=== PATIENT | female | born 1965 | race Caucasian/White ===

== ENCOUNTER → 2017-03-19 | Outpatient (CLI) | payer OTHER ==
[2017-03-19 14:41] LABS: CHLAM PCR NOT DETECTED (NOT DETECT)
== END ==
LOC: LAB 13:00
PROVIDERS: ATTEND Nurse Practitioner Acute Care
DX: N89.8 Other specified noninflammatory disorders of vagina (principal); R30.0 Dysuria
CPT/HCPCS: 87086; 87210; 87491; 87591

== ENCOUNTER → 2017-08-19 | Outpatient (CLI) | payer OTHER ==
--- NOTE | 2017-08-19 09:57 | WOMENS IMAGING REPORT ---
EXAM DESCRIPTION: BILAT SCREENING MAMMO W/CAD COMPLETED DATE/TIME: 08/19/2017 8:16 am REASON FOR STUDY: ROUTINE SCREENING; Z12.31 Z12.31 ENCNTR SCREEN MAMMOGRAM FOR MALIGNANT NEOPLASM O F SOY COMPARISON: 08/18/2016 and 07/23/2015. TECHNIQUE: Standard craniocaudal and mediolateral oblique views of each breast recorded using digita l acquisition. LIMITATIONS: None. FINDINGS: No masses, calcifications or architectural distortion. No areas of suspicion. Read with the assistance of CAD. .[facility] - R2 Cenova Version 1.3 .[facility] Imaging - R2 Cenova Version 1.3 .[facility] Imaging - R2 Cenova Version 2.4 .[facility] [place] - R2 Cenova Version 2.4 .[facility] - R2 Oracle Apex Developer Version 9.2 IMPRESSION: NORMAL MAMMOGRAM. BIRADS 1. BREAST DENSITY: c. The breasts are heterogeneously dense, which may obscure small masses. BIRAD: 1 NEGATIVE RECOMMENDATION: ROUTINE SCREENING COMMENT: The patient has been notified of the results by letter per MQSA requirements. Additional no tification policies are in place for contacting patient with suspicious or incomplete findings. Quality ID #[id number]: The [employer] recommends an annual screening mammogram for women aged 40 years or over. This facility utilizes a reminder system to ensure that all patients receive reminder letters, and/or direct phone calls for appointments. This includes reminders for routine scr eening mammograms, diagnostic mammograms, or other Breast Imaging Interventions when appropriate. Th is patient will be placed in the appropriate reminder system. The [employer] (ACR) has developed recommendations for screening MRI of the breast s in certain patient populations, to be used in conjunction with mammography. Breast MRI surveillanc e may be appropriate for women with more than 20% lifetime risk of developing breast cancer as deter mined by genetic testing, significant family history of the disease, or history of mantle radiation f or Hodgkins Disease. ACR Practice Guidelines 2008. TECHNICAL DOCUMENTATION: FINDING NUMBER: (1) ASSESSMENT: (1) JOB ID: [id number] [employer]- All Rights Reserved
== END ==
LOC: WI 07:55
PROVIDERS: ATTEND Family Medicine
DX: Z12.31 Encounter for screening mammogram for malignant neoplasm of breast (principal)
CPT/HCPCS: 77067; G0202

== ENCOUNTER → 2018-08-11 | Outpatient (CLI) | payer OTHER ==
--- NOTE | 2018-08-11 15:51 | RADIOLOGY REPORT (SQ) ---
EXAM DESCRIPTION: LUMBAR SPINE COMPLETE COMPLETED DATE/TIME: 08/11/2018 2:08 pm REASON FOR STUDY: CHRONIC CORRINE LBP WITH BILAT SCIATICA M54.42 LUMBAGO WITH SCIATICA, LEFT SIDE COMPARISON: None. NUMBER OF VIEWS: Five views including obliques. TECHNIQUE: AP, lateral, oblique, and sacral radiographic images acquired of the lumbar spine. LIMITATIONS: None. FINDINGS: MINERALIZATION: Normal. SEGMENTATION: Normal. No transitional anatomy. ALIGNMENT: Normal. VERTEBRAE: Maintained height. No fracture or worrisome bone lesion. DISCS: Multilevel disc space narrowing with osteophytes. POSTERIOR ELEMENTS: Pedicles and facets are intact. No pars defect or posterior arch defects. Facet arthropathy is present. HARDWARE: None in the spine. PARASPINAL SOFT TISSUES: Normal. PELVIS: Intact as visualized. No fractures or worrisome bone lesions. SI joints intact. OTHER: No other significant finding. IMPRESSION: SPONDYLOSIS WITHOUT BONE LESION OR FRACTURE. TECHNICAL DOCUMENTATION: JOB ID: [id number] [employer]- All Rights Reserved Reading location - IP/workstation name: [email or web address]
== END ==
LOC: OD 13:49
PROVIDERS: ATTEND Family Medicine
DX: M54.42 Lumbago with sciatica, left side (principal)
CPT/HCPCS: 72110

== ENCOUNTER → 2018-08-23 | Outpatient (CLI) | payer OTHER ==
--- NOTE | 2018-08-23 09:09 | WOMENS IMAGING REPORT ---
EXAM DESCRIPTION: BILAT SCREENING MAMMO W/CAD COMPLETED DATE/TIME: 08/23/2018 8:15 am REASON FOR STUDY: SCREENING MAMMO Z12.31 ENCNTR SCREEN MAMMOGRAM FOR MALIGNANT NEOPLASM OF SOY COMPARISON: Multiple since 2008 TECHNIQUE: Standard craniocaudal and mediolateral oblique views of each breast recorded using digita l acquisition. LIMITATIONS: None. FINDINGS: No masses, calcifications or architectural distortion. No areas of suspicion. Read with the assistance of CAD. .[facility] - R2 Cenova Version 1.3 .[facility] Imaging - R2 Cenova Version 1.3 .[facility] Imaging - R2 Cenova Version 2.4 .[facility] [place] - R2 Cenova Version 2.4 .[facility] - R2 Parts Administrator Version 9.2 IMPRESSION: NORMAL MAMMOGRAM. BIRADS 1. BREAST DENSITY: b. There are scattered areas of fibroglandular density. BIRAD: 1 NEGATIVE RECOMMENDATION: ROUTINE SCREENING Please continue yearly bilateral screening mammography/tomosynthesis in August 2019 COMMENT: The patient has been notified of the results by letter per SA requirements. Additional no tification policies are in place for contacting patient with suspicious or incomplete findings. Quality ID #[id number]: The [employer] recommends an annual screening mammogram for women aged 40 years or over. This facility utilizes a reminder system to ensure that all patients receive reminder letters, and/or direct phone calls for appointments. This includes reminders for routine scr eening mammograms, diagnostic mammograms, or other Breast Imaging Interventions when appropriate. Th is patient will be placed in the appropriate reminder system. The [employer] (ACR) has developed recommendations for screening MRI of the breast s in certain patient populations, to be used in conjunction with mammography. Breast MRI surveillanc e may be appropriate for women with more than 20% lifetime risk of developing breast cancer as deter mined by genetic testing, significant family history of the disease, or history of mantle radiation f or Hodgkins Disease. ACR Practice Guidelines 2008. TECHNICAL DOCUMENTATION: FINDING NUMBER: (1) ASSESSMENT: (1) JOB ID: [id number] [employer]- All Rights Reserved Reading location - IP/workstation name: [email or web address]
== END ==
LOC: WI 07:57
PROVIDERS: ATTEND Family Medicine
DX: Z12.31 Encounter for screening mammogram for malignant neoplasm of breast (principal)
CPT/HCPCS: 77067

== ENCOUNTER → 2018-10-20 | Outpatient (CLI) | payer OTHER ==
[2018-10-20 11:19] LABS: EPITHELIALS (WET MOUNT) 3+ EPITHELIALS SEEN; RBCS (WET MOUNT) FEW RBCS SEEN; T.VAGINALIS (WET MOUNT) NO TRICHOMONAS SEEN; WBCS (WET MOUNT) FEW WBCS SEEN; YEAST (WET MOUNT) NO YEAST SEEN
== END ==
LOC: LAB 11:08
PROVIDERS: ATTEND Nurse Practitioner Acute Care
DX: N89.8 Other specified noninflammatory disorders of vagina (principal)
CPT/HCPCS: 87210

== ENCOUNTER → 2019-02-22 | Outpatient (CLI) | payer OTHER ==
--- NOTE | 2019-02-22 09:57 | WOMENS IMAGING REPORT ---
EXAM DESCRIPTION: RIGHT DIAGNOSTIC MAMMO W/CAD COMPLETED DATE/TIME: 02/22/2019 8:33 am REASON FOR STUDY: N63.0 UNSPECIFIED LUMP IN UNSPECIFIED BREAST N63.0 UNSPECIFIED LUMP IN UNSPECIFIE D BREAST COMPARISON: [id number] EXAM PARAMETERS: Standard craniocaudal and mediolateral oblique images of the breast recorded with d igital acquisition. True lateral view. Read with the assistance of CAD. .[facility] - R2 [employer] Worker Version 9.2 LIMITATIONS: None. FINDINGS: BREAST LATERALITY: right MASSES: No suspicious masses. CALCIFICATIONS: No new or suspicious calcifications. ARCHITECTURAL DISTORTION: None. DEVELOPING DENSITY: None. ASYMMETRY: None noted. OTHER: No other significant findings. IMPRESSION: No evidence of malignancy. BREAST DENSITY: b. There are scattered areas of fibroglandular density. BIRAD: ASSESSMENT: 1 Negative. RECOMMENDATION: RECOMMENDED FOLLOW UP: Birads 1 or 2: The patient should resume routine screening . SPECIFIC INTERVENTION/IMAGING/CONSULTATION RECOMMENDED:No additional intervention/ imaging/consultati on needed at this time. COMMUNICATION:The imaging findings were not discussed with the patient. Her referring provider has be en notified of the findings. COMMENT: The patient has been notified of the results by letter per MQSA requirements. Additional no tification policies are in place for contacting patient with suspicious or incomplete findings. Quality ID #225: The [employer] recommends an annual screening mammogram for women aged 40 years or over. This facility utilizes a reminder system to ensure that all patients receive reminder letters, and/or direct phone calls for appointments. This includes reminders for routine scr eening mammograms, diagnostic mammograms, or other Breast Imaging Interventions when appropriate. Th is patient will be placed in the appropriate reminder system. TECHNICAL DOCUMENTATION: FINDING NUMBER: (1) ASSESSMENT: (1) JOB ID: [id number] [employer]- All Rights Reserved Reading location - IP/workstation name: [email or web address]
== END ==
LOC: WI 07:54
PROVIDERS: ATTEND Family Medicine
DX: N63.10 Unspecified lump in the right breast, unspecified quadrant (principal)

== ENCOUNTER 2019-06-05 00:05 | Emergency (ER) | payer OTHER ==
[2019-06-05 01:56] LABS: ABSOLUTE EOSINOPHILS # (AUTO) 0.1 10^3/uL (0.0-0.6); ABSOLUTE LYMPHOCYTES (AUTO) 1.6 10^3/uL (0.5-4.7); ABSOLUTE MONOCYTES (AUTO) 0.6 10^3/uL (0.1-1.4); ABSOLUTE NEUT (AUTO) 6.8 10^3/uL (1.7-8.2); BASOPHILS % (AUTO) 0.3 % (0-2); EOSINOPHILS % (AUTO) 1.3 % (0-6); HEMATOCRIT 41.8 % (36.0-47.0); HEMOGLOBIN 14.6 g/dL (12.0-15.5); LYMPHOCYTES % (AUTO) 17.4 % (13-45); MEAN CORPUSCULAR HEMOGLOBIN 28.5 pg (27.0-33.4); MEAN CORPUSCULAR VOLUME 82 fl (80-97); PLATELET COUNT 232 10^3/uL (150-450); RED BLOOD COUNT 5.13 10^6/uL (3.72-5.28); RED CELL DISTRIBUTION WIDTH 13.4 % (11.5-14.0); TOTAL CELLS COUNTED % (AUTO) 100 %; WHITE BLOOD COUNT 9.2 10^3/uL (4.0-10.5)
--- NOTE | 2019-06-05 02:12 | ER Document Report ---
ED Extremity Problem, Lower - General Chief Complaint: Ankle Injury Stated Complaint: ANKLE PAIN/BLEEDING Time Seen by Provider: 06/05/19 01:30 Primary Care Provider: BRUCE YIN DO [Primary Care Provider] - Follow up as needed Notes: Patient is a 54-year-old female history of hypertension presents to the emergenc y department for a potential bleeding varicose vein in her left lower leg. Patient states she thought she had a scab on her left lower externally. States she went to scratch it and inadvertently the scab came off. States she noticed "spurting bright red blood." States her son had bleed stop in his Boy Electrical Equipment Assembler bag and they applied it. States bleeding had stopped pretty quickly after application of bleed stop, then patient presented to the emergency room. Patient's denying any injury or trauma to her left lower extremity. Patient denies any lightheadedness, dizziness, weakness, chest pain, shortness of breath. TRAVEL OUTSIDE OF THE [place] IN LAST 30 DAYS: No - Related Data Allergies/Adverse Reactions: No Known Allergies Allergy (Verified 12/01/14 16:22) Past Medical History - General Information source: Patient - Social History Smoking Status: Never Smoker Chew tobacco use (# tins/day): No Frequency of alcohol use: None Drug Abuse: None Family History: Reviewed & Not Pertinent Patient has suicidal ideation: No Patient has homicidal ideation: No - Past Medical History Cardiac Medical History: Reports: Hx Hypertension - on meds Denies: Hx Coronary Artery Disease, Hx Heart Attack Pulmonary Medical History: Reports: Hx Asthma - as child Denies: Hx Bronchitis, Hx COPD, Hx Pneumonia Neurological Medical History: Denies: Hx Cerebrovascular Accident, Hx Seizures Musculoskeletal Medical History: Denies Hx Arthritis Past Surgical History: Reports: Hx Hysterectomy - Immunizations Hx Diphtheria, Pertussis, Tetanus Vaccination: Yes Review of Systems - Review of Systems Constitutional: denies: Fever EENT: No symptoms reported Cardiovascular: No symptoms reported Respiratory: No symptoms reported Gastrointestinal: No symptoms reported Genitourinary: No symptoms reported Female Genitourinary: No symptoms reported Musculoskeletal: No symptoms reported Skin: See HPI Hematologic/Lymphatic: denies: Anemia, Blood clots, Easy bleeding, Easy bruising Neurological/Psychological: No symptoms reported Physical Exam - Vital signs Vitals: Temp Pulse Resp BP Pulse Ox 97.7 F 108 H 20 144/88 H 98 06/05/19 00:21 06/05/19 00:21 06/05/19 00:21 06/05/19 00:21 06/05/19 00:21 - Notes Notes: GENERAL: Alert, interacts well. No acute distress. HEAD: Normocephalic, atraumatic. EYES: Pupils equal, round, and reactive to light. Extraocular movements intact. ENT: Oral mucosa moist, tongue midline. NECK: Full range of motion. Supple. Trachea midline. LUNGS: Clear to auscultation bilaterally, no wheezes, rales, or rhonchi. No respiratory distress. HEART: Regular rate and rhythm. No murmur ABDOMEN: Soft, non-tender. Non-distended. Bowel sounds present in all 4 quadrants. EXTREMITIES: Moves all 4 extremities spontaneously. No edema, normal radial and dorsalis pedis pulses bilaterally. No cyanosis. Multiple varicose veins noted bilateral lower extremities. BACK: no cervical, thoracic, lumbar midline tenderness. No saddle anesthesia, normal distal neurovascular exam. NEUROLOGICAL: Alert and oriented x3. Normal speech. cranial nerves II through XII grossly intact PSYCH: Normal affect, normal mood. SKIN: Warm, dry, normal turgor. 'Bleed stop' noted left lower lateral extremity. Does appear to be white and hard in nature. Course - Re-evaluation Re-evalutation: 06/05/19 02:10 Patient does present to the emergency department after applying an soel-wcw-hbysifm bleed stop to potential bleeding varicose vein. Bleeding has discontinued upon arrival to the emergency room. Patient's CBC is within normal limits. Discussed this case my attending Dr. Ramirez, he states to leave white powder in place. States this typically acts as a scab and removing it can cause a recurrence of bleeding. Discussed with patient use of ikjm-lbu-gevotrn soap and water, cleaning the wound as it was a delicate scab. At this time will discharge with return precautions and follow-up recommendations. Verbal discharge instructions given a the bedside and opportunity for questions given. Medication warnings reviewed. Patient is in agreement with this plan and has verbalized understanding of return precautions and the need for primary care follow-up in the next 24-72 hours. This medical record was dictated with voice recognizing software. There may be grammatical, syntax errors that are unintended. - Vital Signs Vital signs: Temp Pulse Resp BP Pulse Ox 97.7 F 108 H 20 144/88 H 98 06/05/19 00:21 06/05/19 00:21 06/05/19 00:21 06/05/19 00:21 06/05/19 00:21 - Laboratory Result Diagrams: 06/05/19 01:35 Discharge - Discharge Clinical Impression: Wound of left lower extremity Qualifiers: Encounter type: initial encounter Qualified Code(s): S81.802A - Unspecified open wound, left lower leg, initial encounter Condition: Stable Disposition: HOME, SELF-CARE Additional Instructions: As we discussed you have been seen and treated in the emergency department for potential bleeding varicose vein. As we discussed you should clean the area with generalized soap and water, do not submerge it. Please follow-up with your primary care provider in the next 24 to 48 hours. Please return to the emergency room for any concerns. Your hemoglobin and hematocrit at today's visit were normal. Referrals: BRUCE YIN, [Primary Care Provider] - Follow up as needed
[2019-06-05 02:20] VITALS: BP 146/75
== END 2019-06-05 02:21 | disposition home or self-care (01) ==
LOC: ER 00:05
DX: S81.802A Unspecified open wound, left lower leg, initial encounter (principal); I83.92 Asymptomatic varicose veins of left lower extremity; X58.XXXA Exposure to other specified factors, initial encounter; I10 Essential (primary) hypertension; Z79.899 Other long term (current) drug therapy; J45.909 Unspecified asthma, uncomplicated
CPT/HCPCS: 36415; 85025; 99283

== ENCOUNTER 2019-11-13 12:12 | Observation (INO) | payer OTHER ==
[2019-11-13 13:05] LABS: ABSOLUTE LYMPHOCYTES (AUTO) 1.7 10^3/uL (0.5-4.7); ABSOLUTE MONOCYTES (AUTO) 0.4 10^3/uL (0.1-1.4); ABSOLUTE NEUT (AUTO) 3.5 10^3/uL (1.7-8.2); BASOPHILS % (AUTO) 0.6 % (0-2); EOSINOPHILS % (AUTO) 0.3 % (0-6); HEMATOCRIT 42.6 % (36.0-47.0); LYMPHOCYTES % (AUTO) 30.1 % (13-45); MEAN CORPUSCULAR HEMOGLOBIN 28.7 pg (27.0-33.4); MEAN CORPUSCULAR HGB CONC 35.3 g/dL (32.0-36.0); MEAN CORPUSCULAR VOLUME 82 fl (80-97); MONOCYTES % (AUTO) 6.4 % (3-13); PLATELET COUNT 255 10^3/uL (150-450); RED BLOOD COUNT 5.23 10^6/uL (3.72-5.28); SEGMENTED NEUTROPHILS % (AUTO) 62.6 % (42-78); TOTAL CELLS COUNTED % (AUTO) 100 %; WHITE BLOOD COUNT 5.6 10^3/uL (4.0-10.5)
[2019-11-13 13:23] LABS: ALBUMIN 4.4 g/dL (3.5-5.0); ALKALINE PHOSPHATASE 90 U/L (38-126); ANION GAP 11 (5-19); ASPARTATE AMINO TRANSFERASE 21 U/L (14-36); BILIRUBIN,DIRECT 0.2 mg/dL (0.0-0.4); BILIRUBIN,TOTAL 0.5 mg/dL (0.2-1.3); BLOOD UREA NITROGEN 14 mg/dL (7-20); CALCIUM 9.3 mg/dL (8.4-10.2); CARBON DIOXIDE 29 mmol/L (22-30); CHLORIDE 100 mmol/L (98-107); CREATINE KINASE 44 U/L (30-135); GLUCOSE 116 mg/dL (75-110); POTASSIUM 3.2 mmol/L (3.6-5.0); TOTAL PROTEIN 7.5 g/dL (6.3-8.2)
[2019-11-13] MEDS ORDERED: NORMAL SALINE 1000 ML 1,000 ML IV ONE (13:32)
[2019-11-13 13:35] LABS: CREATINE KINASE MB 0.67 ng/mL (<4.55)
[2019-11-13 13:42] LABS: TROPONIN I 0.091 ng/mL
[2019-11-13 13:44] LABS: APPEARANCE,URINE CLEAR; BILIRUBIN,URINE NEGATIVE (NEGATIVE); COLOR,URINE STRAW; GLUCOSE, URINE NEGATIVE (NEGATIVE); KETONES,URINE NEGATIVE (NEGATIVE); LEUKOCYTE ESTERASE,URINE NEGATIVE (NEGATIVE); NITRITE,URINE NEGATIVE (NEGATIVE); PROTEIN,URINE NEGATIVE (NEGATIVE); URINE SPECIFIC GRAVITY 1.018; UROBILINOGEN,URINE NEGATIVE mg/dL (<2.0)
--- NOTE | 2019-11-13 14:35 | RADIOLOGY REPORT (SQ) ---
EXAM DESCRIPTION: CT HEAD WITHOUT COMPLETED DATE/TIME: 11/13/2019 2:23 pm REASON FOR STUDY: syncope/sz COMPARISON: None. TECHNIQUE: Axial images acquired through the brain without intravenous contrast. Images reviewed wi th bone, brain and subdural windows. Additional sagittal and coronal reconstructions were generated. Images stored on PACS. All CT scanners at this facility use dose modulation, iterative reconstruction, and/or weight based d osing when appropriate to reduce radiation dose to as low as reasonably achievable (ALARA). [facility]: Dose Right [facility]: CareDose [facility]: Dose Right [facility]: Teradose 4D [facility]: THE FASHION RADIATION DOSE: CT Rad equipment meets quality standard of care and radiation dose reduction techniq ues were employed. CTDIvol: 53.2 mGy. DLP: 991 mGy-cm. LIMITATIONS: None. FINDINGS: There is no acute intracranial hemorrhage, vascular territorial infarct, extra-axial fluid collection, mass effect or midline shift. There is no effacement of the cerebral sulci or basal sub arachnoid cisterns. The blas-white matter differentiation is preserved. The caliber the ventricles is concordant with the degree of sulcation. The orbits and globes are intact. The paranasal sinuses are clear. There is no fracture of the calv arium. IMPRESSION: No acute intracranial abnormality. EVIDENCE OF ACUTE STROKE: NO. COMMENT: Quality ID # [id number]: Final reports with documentation of one or more dose reduction techniques (e.g., Automated exposure control, adjustment of the mA and/or kV according to patient size, use of iterative reconstruction technique) TECHNICAL DOCUMENTATION: JOB ID: [id number] 2010 [employer]- All Rights Reserved Reading location - IP/workstation name: [email or web address]
--- NOTE | 2019-11-13 14:45 | RADIOLOGY REPORT (SQ) ---
EXAM DESCRIPTION: CTA CHEST COMPLETED DATE/TIME: 11/13/2019 2:23 pm REASON FOR STUDY: syncope/sz COMPARISON: None. TECHNIQUE: CT scan of the chest performed using helical scanning technique with dynamic intravenous contrast injection. Images reviewed with lung, soft tissue and bone windows. Reconstructed coronal and sagittal MPR images reviewed. Additional 3 dimensional post-processing performed to develop Maximal Intensity Projection images (PA P). All images stored on PACS. All CT scanners at this facility use dose modulation, iterative reconstruction, and/or weight based d osing when appropriate to reduce radiation dose to as low as reasonably achievable (ALARA). [facility]: Dose Right [facility]: CareDose [facility]: Dose Right [facility]: Teradose 4D [facility]: T[employer] Solutions CONTRAST TYPE AND DOSE: Contrast/concentration: Isovue 350.00 mg/ml; Total Contrast Delivered: 71.0 ml; Total Saline Delivered: 37.0 ml Contrast bolus optimized for the pulmonary arteries. RENAL FUNCTION: GFR > 60. RADIATION DOSE: CT Rad equipment meets quality standard of care and radiation dose reduction techniq ues were employed. CTDIvol: 6.6 - 29.8 mGy. DLP: 1071 mGy-cm. LIMITATIONS: None. FINDINGS: LUNGS AND PLEURA: The trachea main bronchi are patent. There is no bronchiectasis or segm ental mucus plugging. There is also no consolidation, ground-glass opacification, pleural effusion o r pneumothorax. AORTA AND GREAT VESSELS: Evaluation is limited as the contrast bolus was optimized for evaluation of the pulmonary arteries. There is no thoracic aortic dissection or aneurysm. HEART: No cardiomegaly or pericardial effusion. PULMONARY ARTERIES: No central or segmental pulmonary emboli. Evaluation of the subsegmental branche s of the pulmonary arteries is limited due to artifact from respiratory motion. HILAR AND MEDIASTINAL STRUCTURES: No adenopathy or mass. HARDWARE: None in the chest. UPPER ABDOMEN: Cholecystectomy clips. THYROID AND OTHER SOFT TISSUES: No masses or adenopathy. BONES: No acute findings. 3D MIPS: Confirm above findings. OTHER: No other finding. IMPRESSION: No central or segmental pulmonary emboli. Evaluation of the subsegmental branches of th e pulmonary arteries is limited due to artifact from respiratory motion COMMENT: Quality ID # [id number]: Final reports with documentation of one or more dose reduction techniques (e.g., Automated exposure control, adjustment of the mA and/or kV according to patient size, use of iterative reconstruction technique) TECHNICAL DOCUMENTATION: JOB ID: [id number] 2010 [employer] [facility] [employer]- All Rights Reserved Reading location - IP/workstation name: [email or web address]
--- NOTE | 2019-11-13 15:42 | ER Document Report ---
ED Dizziness/Weakness - General Chief Complaint: Passed Out Prior to Arrival Stated Complaint: SYNCOPAL EPISODE Time Seen by Provider: 11/13/19 13:01 Primary Care Provider: BRUCE YIN DO [Primary Care Provider] - Follow up as needed Mode of Arrival: Wheelchair Information source: Patient TRAVEL OUTSIDE OF THE [place] IN LAST 30 DAYS: No - HPI Notes: Patient is 54-year-old female who comes in complaining of generalized weakness. Patient and family state that she had a procedure this morning done by a Dr. Cabrera in [facility]. This procedure was stenting of her common iliac vein. Apparently patient received oral sedation with Valium and Percocet. She also had some contrast used to allow the procedure to be performed. Before leaving she did consume a Plavix as well. Patient states she felt well right after the procedure and even had some food. She states during the drive home she began to feel hot and "not good and bloat. Sister states that she was driving and when she looked over the patient was having seizure activity that lasted 10 to 15 seconds. After that she states that the patient passed out. Patient at this time states she is not really having pain but that she just feels very weak and "wore out". The symptoms are constant. They are worse with exertion or standing and better, slightly with rest. The weakness is radiate throughout her body. Symptoms appear to be moderate to severe. Patient has some nausea with his been no vomiting. No changes of vision or speaking. No confusion. Patient has no previous history of seizure since childhood. - Related Data Allergies/Adverse Reactions: No Known Allergies Allergy (Verified 11/13/19 12:46) Past Medical History - General Information source: Patient, Relative - Social History Smoking Status: Never Smoker Frequency of alcohol use: None Drug Abuse: None Family History: Reviewed & Not Pertinent - Past Medical History Cardiac Medical History: Reports: Hx Hypertension - on meds Denies: Hx Coronary Artery Disease, Hx Heart Attack Pulmonary Medical History: Reports: Hx Asthma - as child Denies: Hx Bronchitis, Hx COPD, Hx Pneumonia Neurological Medical History: Reports: Hx Seizures - A CHILD. Denies: Hx Cerebrovascular Accident Musculoskeletal Medical History: Denies Hx Arthritis Past Surgical History: Reports: Hx Cardiac Catheterization - LEFT STENT, Hx Cholecystectomy, Hx Hysterectomy - Immunizations Hx Diphtheria, Pertussis, Tetanus Vaccination: Yes Review of Systems - Review of Systems Constitutional: Malaise, Weakness Cardiovascular: denies: Chest pain, Palpitations Respiratory: denies: Cough, Short of breath Gastrointestinal: denies: Abdominal pain, Diarrhea -: Yes All other systems reviewed and negative Physical Exam - Vital signs Vitals: Temp Pulse Resp BP Pulse Ox 98.4 F 87 20 157/88 H 98 11/13/19 12:13 11/13/19 12:13 11/13/19 12:13 11/13/19 12:13 11/13/19 12:13 Interpretation: Normal - General General appearance: Appears well, Alert - HEENT Head: Normocephalic, Atraumatic Eyes: Normal Pupils: PERRL - Respiratory Respiratory status: No respiratory distress Chest status: Nontender Breath sounds: Normal Chest palpation: Normal - Cardiovascular Rhythm: Regular Heart sounds: Normal auscultation Murmur: No - Abdominal Inspection: Normal Distension: No distension Bowel sounds: Normal Tenderness: Nontender Organomegaly: No organomegaly - Back Back: Normal, Nontender - Extremities General upper extremity: Normal inspection, Nontender, Normal color, Normal ROM, Normal temperature General lower extremity: Normal inspection, Nontender, Normal color, Normal ROM, Normal temperature, Normal weight bearing. No: Clara's sign - Neurological Neuro grossly intact: Yes Cognition: Normal Orientation: AAOx4 [place] Coma Scale Eye Opening: Spontaneous [place] Coma Scale Verbal: Oriented [place] Coma Scale Motor: Obeys Commands [place] Coma Scale Total: 15 Speech: Normal Motor strength normal: LUE, RUE, LLE, RLE Sensory: Normal - Psychological Associated symptoms: Normal affect, Normal mood - Skin Skin Temperature: Warm Skin Moisture: Dry Skin Color: Normal Course - Re-evaluation Re-evalutation: 11/13/19 15:40 Patient presents with seizure versus tonic-clonic activity after having a vein procedure approximately 2 hours before the events. The procedure consisted of stenting the vent. There is no evidence the patient has had a pulmonary embolism. She does have some nonspecific EKG changes with equivocal troponin changes. Patient be admitted for observation as well as serial troponins. No evidence of infection. No evidence of any focal neurological deficits. Head CT was unremarkable. At this time patient appears relatively stable with no significant change in her exam. Vital signs have been stable with a mild tachycardia at 105. - Vital Signs Vital signs: Temp Pulse Resp BP Pulse Ox 97.5 F 87 10 L 140/90 H 99 11/13/19 15:17 11/13/19 12:13 11/13/19 13:31 11/13/19 13:31 11/13/19 13:31 - Laboratory Result Diagrams: 11/13/19 12:43 11/13/19 12:43 Laboratory results interpreted by me: 11/13/19 11/13/19 12:43 13:20 Potassium 3.2 L Glucose 116 H Urine Blood SMALL H - Diagnostic Test Radiology reviewed: Image reviewed, Reports reviewed - EKG Interpretation by Me Rate: Normal Rhythm: NSR - 83 [place]/QRS: Left axis deviation. No: Right axis deviation When compared to previous EKG there are: Other - Some nonspecific T wave changes that consist of diffuse flattening of the T waves. Discharge - Discharge Clinical Impression: Syncope Qualifiers: Syncope type: unspecified Qualified Code(s): R55 - Syncope and collapse Condition: Fair Disposition: ADMITTED OBSERVATION Admitting Provider: Marin (Hospitalist) Unit Admitted: Telemetry Referrals: BRUCE YIN DO [Primary Care Provider] - Follow up as needed
--- NOTE | 2019-11-13 16:55 | PDOC H&P ---
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 The episode occurred just before presentation in the ER. Today, patient went for left iliofemoral stent placeme nt which was done by Dr. Cabrera in [place] for treatment of her May Thurner syndrome. The procedure was done with administration of Valium and Percocet as well as local anesthesia with lidocaine. Dr. Cabrera confirms that she only received about 5 to 7 cc of local lidocaine. The procedure was done without any systemic anesthesia. Dye was administered. On the drive back, patient noted that she felt hot and subsequently began having full body convulsions for about 15 seconds. After this, she immediately stated "I do not feel good" and passed out. This incident was witnessed by patient's sister who was driving and notes that patient was unconscious for about 10 to 15 minutes a nd regained consciousness on arrival in the ER. She notes that patient remained 'groggy' for about an hour. Patient denies recollection of the event. Last recollection was in the car after losing consciousness and remembers faintly that her sister was making a call to the ER. At this time, patient complains of some fatigue but otherwise no neurologic features. Patient denies prior episode of seizures besides once in her childhood but endorses paroxysms of heart palpitations for the past many years. Denies any history of heart disease otherwise. Past Medical History Cardiac Medical History: Reports: Hypertension - on meds Denies: Coronary Artery Disease, Myocardial Infarction Pulmonary Medical History: Reports: Asthma - as child Denies: Bronchitis, Chronic Obstructive Pulmonary Disease (COPD), Pneumonia Neurological Medical History: Reports: Seizures - A CHILD Musculoskeltal Medical History: Denies: Arthritis Hematology: Denies: Anemia Past Surgical History Past Surgical History: Reports: Cholecystectomy, Hysterectomy, Vascular Surgery Social History Information Source: Patient Smoking Status: Never Smoker Frequency of Alcohol Use: Rare Hx Recreational Drug Use: No Hx Prescription Drug Abuse: No - Advance Directive Resuscitation Status: Full Code Family History Family History: Other - Venous occlusion in her sister Parental Family History Reviewed: Yes Children Family History Reviewed: NA Sibling(s) Family History Reviewed.: Yes Medication/Allergy Home Medications: Cetirizine HCl [Zyrtec 10 mg Tablet] 10 mg PO DAILY 11/13/19 Cyclobenzaprine HCl [Flexeril 10 mg Tablet] 10 mg PO BIDP PRN 11/13/19 [place] Wall[place]ucus 1,250 mg PO DAILY 11/13/19 Estroven Menopause Relief 1 cap PO DAILY 11/13/19 Hydrochlorothiazide [Hydrodiuril 12.5 mg Tablet] 12.5 mg PO DAILY 11/13/19 Losartan Potassium [Cozaar 50 mg Tablet] 50 mg PO DAILY 11/13/19 Melatonin [Melatonin 3 mg Tablet] 3 mg PO QHS 11/13/19 Multivitamin with Minerals [One Daily Plus Minerals] 1 tab PO DAILY 11/13/19 Allergies/Adverse Reactions: No Known Allergies Allergy (Verified 11/13/19 12:46) Review of Systems Constitutional: PRESENT: fatigue. ABSENT: chills, fever(s), headache(s) Eyes: ABSENT: visual disturbances Nose, Mouth, and Throat: ABSENT: headache(s) Cardiovascular: ABSENT: chest pain Respiratory: ABSENT: cough, dyspnea Gastrointestinal: ABSENT: abdominal pain, nausea, vomiting Musculoskeletal: ABSENT: muscle weakness Integumentary: ABSENT: diaphoresis Neurological: ABSENT: confusion, focal weakness, frequent falls, lack of coordination, numbness, paresthesias, tingling Psychiatric: ABSENT: hallucinations Endocrine: PRESENT: menstrual abnormalities Allergic/Immunologic: PRESENT: seasonal rhinorrhea Physical Exam Vital Signs: Temp Pulse Resp BP Pulse Ox 97.5 F 87 10 L 140/90 H 99 11/13/19 15:17 11/13/19 12:13 11/13/19 13:31 11/13/19 13:31 11/13/19 13:31 Intake & Output 11/12/19 11/13/19 11/14/19 06:59 06:59 06:59 Intake Total 1000 Balance 1000 Weight 111 kg General appearance: PRESENT: no acute distress, cooperative Eye exam: PRESENT: EOMI, PERRLA. ABSENT: nystagmus, scleral icterus Mouth exam: PRESENT: neck supple Neck exam: ABSENT: carotid bruit, JVD Respiratory exam: PRESENT: clear to auscultation rc, unlabored. ABSENT: tachypnea, wheezes Cardiovascular exam: PRESENT: RRR, +S1, +S2. ABSENT: tachycardia GI/Abdominal exam: PRESENT: normal bowel sounds, soft. ABSENT: rebound, rigid, tenderness Extremities exam: PRESENT: full ROM. ABSENT: tenderness Neurological exam: PRESENT: alert, awake, oriented to person, oriented to place, oriented to time, oriented to situation, CN II-XII grossly intact, motor sensory deficit. ABSENT: ataxia, aphasic Psychiatric exam: ABSENT: agitated, anxious Focused psych exam: ABSENT: pressured speech Skin exam: ABSENT: dry Results Laboratory Results: 11/13/19 12:43 11/13/19 12:43 11/13/19 11/13/19 11/13/19 12:43 12:43 13:20 WBC 5.6 RBC 5.23 Hgb 15.0 Hct 42.6 MCV 82 MCH 28.7 MCHC 35.3 RDW 14.0 Plt Count 255 Seg Neutrophils % 62.6 Sodium 139.6 Potassium 3.2 L Chloride 100 Carbon Dioxide 29 Anion Gap 11 BUN 14 Creatinine 0.62 Est GFR ( Amer) > 60 Glucose 116 H Calcium 9.3 Total Bilirubin 0.5 AST 21 Alkaline Phosphatase 90 Total Protein 7.5 Albumin 4.4 Urine Color STRAW Urine Appearance CLEAR Urine pH 6.0 Ur Specific [place] 1.018 Urine Protein NEGATIVE Urine Glucose (UA) NEGATIVE Urine Ketones NEGATIVE Urine Blood SMALL H Urine Nitrite NEGATIVE Ur Leukocyte Esterase NEGATIVE Urine WBC (Auto) 1 Urine RBC (Auto) 2 11/13/19 11/13/19 12:43 12:43 Creatine Kinase 44 CK-MB (CK-2) 0.67 Troponin I 0.091 Impressions: Chest/Abdomen CTA 11/13/19 13:32 IMPRESSION: No central or segmental pulmonary emboli. Evaluation of the subsegmental branches of the pulmonary arteries is limited due to artifact from respiratory motion Head CT 11/13/19 13:32 IMPRESSION: No acute intracranial abnormality. EVIDENCE OF ACUTE STROKE: NO. Assessment and Plan - Diagnosis (1) Loss of consciousness Is this a current diagnosis for this admission?: Yes Plan: Description of the event is question of possible seizure or syncope. However, the fact the patient was able to respond stating " I do not feel good" right after the convulsion before losing consciousness makes diagnosis of seizure somewhat questionable. Will work-up for both seizure and syncope No clear medication trigger the lidocaine could precipitate arrhythmias but only very small dose was given locally according to Dr. Cabrera Head CT negative No need for further brain imaging as patient has no neuro deficits at this time Check echo and carotid dopplers Check EEG Monitor on telemetry for 24 hours for occult arrhythmias as patient does have a chronic history of palpitations. No indication for Antiepileptic prophylaxis at this time. (2) Hypertension Qualifiers: Hypertension type: essential hypertension Qualified Code(s): I10 - Essential (primary) hypertension Is this a current diagnosis for this admission?: Yes Plan: Continue outpatient regimen (3) Elevated troponin Is this a current diagnosis for this admission?: Yes Plan: ST depression noted diffusely on EKG. However, last EKG for comparison was 2014. Troponin mildly elevated. We will continue to trend. Patient has however been chest pain-free. (4) May-Thurner syndrome Is this a current diagnosis for this admission?: Yes Plan: Patient had left iliofermoral stent placement done earlier today by Dr Cabrera at [place]. Apparently this runs in the family. - Time Time Spent with patient: 35 or more minutes
--- NOTE | 2019-11-13 17:49 | EKG REPORT ---
SEVERITY:- BORDERLINE ECG - SINUS RHYTHM BORDERLINE LEFT AXIS DEVIATION BORDERLINE T ABNORMALITIES, ANTERIOR LEADS : Confirmed by: Rodolfo Jama MD 13-Nov-2019 17:48:35
[2019-11-13] MEDS ORDERED: POTASSIUM CHLORIDE 10 MEQ TABLET.ER PO ONE (19:30)
[2019-11-13] MEDS: MELATONIN 3 MG TABLET PO SCH (21:50)
[2019-11-13] MEDS: CYCLOBENZAPRINE HCL 10 MG TABLET PO PRN (21:50)
[2019-11-14] MEDS: ACETAMINOPHEN 325 MG TABLET PO PRN ×2 (04:08→21:21)
[2019-11-14 05:17] LABS: ABSOLUTE LYMPHOCYTES (AUTO) 1.5 10^3/uL (0.5-4.7); ABSOLUTE MONOCYTES (AUTO) 0.6 10^3/uL (0.1-1.4); ABSOLUTE NEUT (AUTO) 6.8 10^3/uL (1.7-8.2); BASOPHILS % (AUTO) 0.3 % (0-2); EOSINOPHILS % (AUTO) 0.1 % (0-6); HEMATOCRIT 41.1 % (36.0-47.0); HEMOGLOBIN 14.5 g/dL (12.0-15.5); LYMPHOCYTES % (AUTO) 16.7 % (13-45); MEAN CORPUSCULAR HEMOGLOBIN 28.7 pg (27.0-33.4); MEAN CORPUSCULAR HGB CONC 35.2 g/dL (32.0-36.0); MEAN CORPUSCULAR VOLUME 82 fl (80-97); MONOCYTES % (AUTO) 7.1 % (3-13); PLATELET COUNT 232 10^3/uL (150-450); RED BLOOD COUNT 5.03 10^6/uL (3.72-5.28); RED CELL DISTRIBUTION WIDTH 13.9 % (11.5-14.0); SEGMENTED NEUTROPHILS % (AUTO) 75.8 % (42-78); TOTAL CELLS COUNTED % (AUTO) 100 %
[2019-11-14 05:47] LABS: ALBUMIN 3.9 g/dL (3.5-5.0); ALKALINE PHOSPHATASE 82 U/L (38-126); ANION GAP 8 (5-19); ASPARTATE AMINO TRANSFERASE 18 U/L (14-36); BILIRUBIN,TOTAL 0.4 mg/dL (0.2-1.3); BLOOD UREA NITROGEN 7 mg/dL (7-20); CALCIUM 9.4 mg/dL (8.4-10.2); CARBON DIOXIDE 28 mmol/L (22-30); CHLORIDE 104 mmol/L (98-107); GLUCOSE 119 mg/dL (75-110); POTASSIUM 3.9 mmol/L (3.6-5.0); TOTAL PROTEIN 6.4 g/dL (6.3-8.2)
--- NOTE | 2019-11-14 06:48 | EKG REPORT ---
SEVERITY:- BORDERLINE ECG - SINUS RHYTHM BORDERLINE T ABNORMALITIES, ANTERIOR LEADS : Confirmed by: Rodolfo Jama MD 14-Nov-2019 06:48:31
[2019-11-14] MEDS: HYDROCHLOROTHIAZIDE 12.5 MG TABLET PO SCH (09:22)
[2019-11-14] MEDS: CETIRIZINE 10 MG TABLET PO SCH (09:22)
[2019-11-14] MEDS: ENOXAPARIN SODIUM INJ 40 MG/0.4 ML DISP.SYRIN SUBCUT SCH (09:22)
[2019-11-14] MEDS: LOSARTAN POTASSIUM 50 MG TABLET PO SCH (09:22)
--- NOTE | 2019-11-14 13:25 | PDOC PROGRESS REPORT ---
Subjective Progress Note for:: 11/14/19 Reason For Visit: SYNCOPE,SEIZURE 11/14/2019 Seizure activity yesterday with syncope following surgical procedure Physical Exam Vital Signs: Temp Pulse Resp BP Pulse Ox 98 F 88 17 134/68 H 96 11/14/19 08:00 11/14/19 08:00 11/14/19 08:00 11/14/19 08:00 11/14/19 08:00 Intake & Output 11/13/19 11/14/19 11/15/19 06:59 06:59 06:59 Intake Total 3200 Output Total 1200 Balance 2000 Weight 111 kg General appearance: PRESENT: no acute distress, well-developed, well-nourished Respiratory exam: PRESENT: clear to auscultation rc. ABSENT: rales, rhonchi, wheezes Cardiovascular exam: PRESENT: RRR. ABSENT: diastolic murmur, rubs, systolic murmur Neurological exam: PRESENT: alert, awake, oriented to person, oriented to place, oriented to time, oriented to situation, CN II-XII grossly intact. ABSENT: motor sensory deficit Psychiatric exam: PRESENT: appropriate affect, normal mood. ABSENT: homicidal ideation, suicidal ideation Results Laboratory Results: 11/14/19 04:35 11/14/19 04:35 11/13/19 11/13/19 11/13/19 12:43 12:43 13:20 WBC RBC Hgb Hct MCV MCH MCHC RDW Plt Count Seg Neutrophils % Sodium 139.6 Potassium 3.2 L Chloride 100 Carbon Dioxide 29 Anion Gap 11 BUN 14 Creatinine 0.62 Est GFR ( Amer) > 60 Glucose 116 H Calcium 9.3 Phosphorus 3.2 Total Bilirubin 0.5 AST 21 Alkaline Phosphatase 90 Total Protein 7.5 Albumin 4.4 Urine Color STRAW Urine Appearance CLEAR Urine pH 6.0 Ur Specific [place] 1.018 Urine Protein NEGATIVE Urine Glucose (UA) NEGATIVE Urine Ketones NEGATIVE Urine Blood SMALL H Urine Nitrite NEGATIVE Ur Leukocyte Esterase NEGATIVE Urine WBC (Auto) 1 Urine RBC (Auto) 2 11/14/19 11/14/19 04:35 04:35 WBC 9.0 RBC 5.03 Hgb 14.5 Hct 41.1 MCV 82 MCH 28.7 MCHC 35.2 RDW 13.9 Plt Count 232 Seg Neutrophils % 75.8 Sodium 139.8 Potassium 3.9 Chloride 104 Carbon Dioxide 28 Anion Gap 8 BUN 7 Creatinine 0.51 L Est GFR ( Amer) > 60 Glucose 119 H Calcium 9.4 Phosphorus Total Bilirubin 0.4 AST 18 Alkaline Phosphatase 82 Total Protein 6.4 Albumin 3.9 Urine Color Urine Appearance Urine pH Ur Specific [place] Urine Protein Urine Glucose (UA) Urine Ketones Urine Blood Urine Nitrite Ur Leukocyte Esterase Urine WBC (Auto) Urine RBC (Auto) 11/13/19 11/13/19 11/13/19 12:43 12:43 12:43 Creatine Kinase 44 Cancelled CK-MB (CK-2) 0.67 Troponin I 0.091 11/13/19 18:22 Creatine Kinase CK-MB (CK-2) Troponin I 0.068 Impressions: Chest/Abdomen CTA 11/13/19 13:32 IMPRESSION: No central or segmental pulmonary emboli. Evaluation of the subsegmental branches of the pulmonary arteries is limited due to artifact from respiratory motion Head CT 11/13/19 13:32 IMPRESSION: No acute intracranial abnormality. EVIDENCE OF ACUTE STROKE: NO. Assessment and Plan - Diagnosis (1) Hypertension Qualifiers: Hypertension type: essential hypertension Qualified Code(s): I10 - Essential (primary) hypertension Is this a current diagnosis for this admission?: Yes (2) Loss of consciousness Is this a current diagnosis for this admission?: Yes (3) Syncope Qualifiers: Syncope type: unspecified Qualified Code(s): R55 - Syncope and collapse Is this a current diagnosis for this admission?: Yes - Plan Summary Summary: 11/14/2019 Temperature 98 pulse 88 O2 sat 96% on room air blood pressure 134/68 BC appears stable chemistry panel is stable Troponins were elevated yesterday Patient had no complaints of chest pain at that time Echo is pending from today carotid Dopplers are pending from today CT head scan from yesterday showed no acute changes EKG showed normal sinus rhythm Going to check a magnesium level today I am going to repeat troponin and CK-MB index today If patient remained stable and work-up from today is normal we will discharge tomorrow I have discussed this with the patient and her sister - Time Time Spent with patient: 25-34 minutes
--- NOTE | 2019-11-14 13:57 | RADIOLOGY REPORT (SQ) ---
EXAM DESCRIPTION: CAROTID DOPPLER COMPLETED DATE/TIME: 11/14/2019 1:34 pm REASON FOR STUDY: syncope COMPARISON: None. TECHNIQUE: Grayscale ultrasound, Doppler velocity and spectra, and color Doppler images acquired of the extra-cranial carotid and vertebral arteries. Images stored on PACS. LIMITATIONS: None. FINDINGS: RIGHT CAROTID CCA Velocities: Within normal limits. ICA Velocities Peak systolic 108 cm/s. End diastolic 45 cm/s. Proximal ICA/CCA peak systolic ratio 1 point for. Spectra normal. No significant plaque. LEFT CAROTID CCA Velocities: Within normal limits. ICA Velocities Peak systolic 112 cm/s. End diastolic 50 cm/s. Proximal ICA/CCA peak systolic ratio 1.3. Spectra normal. No significant plaque. VERTEBRAL ARTERIES: Antegrade flow. Normal waveforms. SUBCLAVIAN ARTERIES: No finding. OTHER: No other significant finding. IMPRESSION: NO HEMODYNAMICALLY SIGNIFICANT STENOSIS. COMMENT: Quality ID #[id number]: Velocity criteria are extrapolated from the diameter data as defined by t he Society of Radiologists in Ultrasound Consensus Conference. Radiology 2003: 229; 340-346. TECHNICAL DOCUMENTATION: JOB ID: [id number] 2010 [employer]- All Rights Reserved Reading location - IP/workstation name: [email or web address]
[2019-11-14 15:48] LABS: CREATINE KINASE MB 0.23 ng/mL (<4.55)
[2019-11-14 15:52] LABS: TROPONIN I < 0.012 ng/mL
[2019-11-14] MEDS: CYCLOBENZAPRINE HCL 10 MG TABLET PO PRN (21:20)
[2019-11-14] MEDS: MELATONIN 3 MG TABLET PO SCH (21:21)
--- NOTE | 2019-11-14 21:46 | XCELERA REPORT ---
[address] [address] Transthoracic Echocardiogram Report Name: CLEMENTE CARRERA Age: 54 yrs Gender: Female : 1965 Patient Status: Inpatient Patient Location: ^424^A Study Date: 11/14/2019 11:26 AM Height: 67 in Weight: 244 lb BSA: 2.2 m2 Procedure: A complete two-dimensional transthoracic echocardiogram was performed (2D, M-mode, spectral and color flow Doppler). The study was technically adequate with some images being suboptimal in quality. Reason For Study: syncope Ordering Physician: LALITA^BENJI^A^^MD Performed By: Trena Medina Interpretation Summary The left ventricular ejection fraction is within normal limits. Doppler measurements suggest impaired left ventricular relaxation, which is associated with grade I/IV or mild diastolic dysfunction Wall motion cannot be accurately commented on, but no definite regional wall motion abnormalities noted. The left ventricle is grossly normal size. The right ventricular systolic function is normal. The left atrial size is normal. The right atrium is normal. There is a trace amount of mitral regurgitation There is no mitral valve stenosis. No aortic regurgitation is present. There is no aortic valve stenosis There is a trace or physiologic amount of tricuspid regurgitation There is no tricuspid stenosis. There is no pericardial effusion. MMode/2D Measurements & Calculations RVDd: 3.0 cm LVIDd: 5.3 cm FS: 40.2 % Ao root diam: 2.9 cm IVSd: 1.0 cm LVIDs: 3.1 cm EDV(Teich): 133.2 ml Ao root area: 6.8 cm2 LVPWd: 1.0 cm ESV(Teich): 39.3 ml EF(Teich): 70.5 % Doppler Measurements & Calculations MV E max zhanna: MV dec slope: Ao V2 max: LV V1 max P.3 cm/sec 383.6 cm/sec2 131.1 cm/sec 5.1 mmHg MV A max zhanna: MV dec time: 0.18 sec Ao max PG: LV V1 max: 64.9 cm/sec 6.9 mmHg 113.0 cm/sec MV E/A: 1.0 PA V2 max: PI end-d zhanna: 84.8 cm/sec 71.4 cm/sec PA max P.9 mmHg Left Ventricle The left ventricle is grossly normal size. There is normal left ventricular wall thickness. The left ventricular ejection fraction is within normal limits. Doppler measurements suggest impaired left ventricular relaxation, which is associated with grade I/IV or mild diastolic dysfunction. Wall motion cannot be accurately commented on, but no definite regional wall motion abnormalities noted. Right Ventricle The right ventricle is grossly normal size. There is normal right ventricular wall thickness. The right ventricular systolic function is normal. Atria The right atrium is normal. The left atrial size is normal. Interarterial septum not well visualized and not well dopplered. Cannot comment on ASD/PFO presence. Mitral Valve The mitral valve is grossly normal. There is no mitral valve stenosis. There is a trace amount of mitral regurgitation. Aortic Valve The aortic valve is grossly normal. There is no aortic valve stenosis. No aortic regurgitation is present. Tricuspid Valve The tricuspid valve is not well visualized, but is grossly normal. There is no tricuspid stenosis. There is a trace or physiologic amount of tricuspid regurgitation. Tricuspid regurgitation jet envelope not well defined to measure RV systolic pressure accurately. Pulmonic Valve The pulmonic valve is not well visualized. Great Vessels The aortic root is not well visualized but is probably normal size. The inferior vena cava appeared normal and decreased > 50% with respiration (RAP 5-10 mmHg). Effusions There is no pericardial effusion. : LALITA^BENJI^Ines^^Zaida Molina
[2019-11-15] MEDS: HYDROCHLOROTHIAZIDE 12.5 MG TABLET PO SCH (10:02)
[2019-11-15] MEDS: ENOXAPARIN SODIUM INJ 40 MG/0.4 ML DISP.SYRIN SUBCUT SCH (10:03)
[2019-11-15] MEDS: CETIRIZINE 10 MG TABLET PO SCH (10:03)
[2019-11-15] MEDS: LOSARTAN POTASSIUM 50 MG TABLET PO SCH (10:08)
--- NOTE | 2019-11-15 15:29 | PDOC DISCHARGE SUMMARY ---
Impression - Admit/DC Date/PCP Admission Date/Primary Care Provider: 11/13/19 15:46 BRUCE YIN DO Discharge Date: 11/15/19 - Discharge Diagnosis (1) Hypertension Is this a current diagnosis for this admission?: Yes (2) Loss of consciousness Is this a current diagnosis for this admission?: Yes (3) Syncope Is this a current diagnosis for this admission?: Yes - Assessment Summary: 11/14/2019 Temperature 98 pulse 88 O2 sat 96% on room air blood pressure 134/68 BC appears stable chemistry panel is stable Troponins were elevated yesterday Patient had no complaints of chest pain at that time Echo is pending from today carotid Dopplers are pending from today CT head scan from yesterday showed no acute changes EKG showed normal sinus rhythm Going to check a magnesium level today I am going to repeat troponin and CK-MB index today If patient remained stable and work-up from today is normal we will discharge tomorrow I have discussed this with the patient and her sister 11/15/2019 Magnesium s normal 2.0 phosphorus normal 3.2 troponins trended down 0.091-second was 0.068 and third was 0.012 Electrolytes were normal Carotid Dopplers show no significant stenosis Echo showed a normal ejection fracture with no significant disease EEG is currently pending We will call the patient or her family with the results from the EEG. She is to do no driving until she follows up with her primary care provider in 5 to 7 days. Suspect that this was some sort of side effect to medication that she received during her procedure in [place], she was on the way home from that when this activity occurred She is medically stable for discharge - Additional Information Resuscitation Status: Full Code Discharge Diet: As Tolerated Discharge Activity: Balance Activity w/Rest, No Driving Referrals: BRUCE YIN DO [Primary Care Provider] - 11/24/19 11:00 am Home Medications: Cetirizine HCl [Zyrtec 10 mg Tablet] 10 mg PO DAILY 11/13/19 Cyclobenzaprine HCl [Flexeril 10 mg Tablet] 10 mg PO BIDP PRN 11/13/19 Elderberry Sambucus 1,250 mg PO DAILY 11/13/19 Estroven Menopause Relief 1 cap PO DAILY 11/13/19 Hydrochlorothiazide [Hydrodiuril 12.5 mg Tablet] 12.5 mg PO DAILY 11/13/19 Losartan Potassium [Cozaar 50 mg Tablet] 50 mg PO DAILY 11/13/19 Melatonin [Melatonin 3 mg Tablet] 3 mg PO QHS 11/13/19 Multivitamin with Minerals [One Daily Plus Minerals] 1 tab PO DAILY 11/13/19 Acetaminophen [Tylenol 325 mg Tablet] 650 mg PO Q6HP PRN tablet 11/15/19 History of Present Illiness History of Present Illness: CLEMENTE CARRERA is a 54 year old female Physical Exam Vital Signs: Temp Pulse Resp BP Pulse Ox 97.6 F 91 17 116/59 L 98 11/15/19 11:13 11/15/19 11:13 11/15/19 11:13 11/15/19 11:13 11/15/19 11:13 Intake & Output 11/14/19 11/15/19 11/16/19 06:59 06:59 06:59 Intake Total 3200 2280 Output Total 1200 1500 Balance 2000 780 Weight 111 kg 114.3 kg Results Laboratory Results: WBC 9.0 10^3/uL (4.0-10.5) 11/14/19 04:35 RBC 5.03 10^6/uL (3.72-5.28) 11/14/19 04:35 Hgb 14.5 g/dL (12.0-15.5) 11/14/19 04:35 Hct 41.1 % (36.0-47.0) 11/14/19 04:35 MCV 82 fl (80-97) 11/14/19 04:35 MCH 28.7 pg (27.0-33.4) 11/14/19 04:35 MCHC 35.2 g/dL (32.0-36.0) 11/14/19 04:35 RDW 13.9 % (11.5-14.0) 11/14/19 04:35 Plt Count 232 10^3/uL (150-450) 11/14/19 04:35 Lymph % (Auto) 16.7 % (13-45) 11/14/19 04:35 [place] % (Auto) 7.1 % (3-13) 11/14/19 04:35 Eos % (Auto) 0.1 % (0-6) 11/14/19 04:35 Baso % (Auto) 0.3 % (0-2) 11/14/19 04:35 Absolute Neuts (auto) 6.8 10^3/uL (1.7-8.2) 11/14/19 04:35 Absolute Lymphs (auto) 1.5 10^3/uL (0.5-4.7) 11/14/19 04:35 Absolute Monos (auto) 0.6 10^3/uL (0.1-1.4) 11/14/19 04:35 Absolute Eos (auto) 0.0 10^3/uL (0.0-0.6) 11/14/19 04:35 Absolute Basos (auto) 0.0 10^3/uL (0.0-0.2) 11/14/19 04:35 Seg Neutrophils % 75.8 % (42-78) 11/14/19 04:35 Sodium 139.8 mmol/L (137-145) 11/14/19 04:35 Potassium 3.9 mmol/L (3.6-5.0) 11/14/19 04:35 Chloride 104 mmol/L (98-107) 11/14/19 04:35 Carbon Dioxide 28 mmol/L (22-30) 11/14/19 04:35 Anion Gap 8 (5-19) 11/14/19 04:35 BUN 7 mg/dL (7-20) 11/14/19 04:35 Creatinine 0.51 mg/dL (0.52-1.25) L 11/14/19 04:35 Est GFR ( Amer) > 60 (>60) 11/14/19 04:35 Est GFR (MDRD) Non-Af > 60 (>60) 11/14/19 04:35 Glucose 119 mg/dL (75-110) H 11/14/19 04:35 Calcium 9.4 mg/dL (8.4-10.2) 11/14/19 04:35 Phosphorus 3.2 mg/dL (2.5-4.5) 11/13/19 12:43 Magnesium 2.0 mg/dL (1.6-2.3) 11/14/19 14:25 Total Bilirubin 0.4 mg/dL (0.2-1.3) 11/14/19 04:35 Direct Bilirubin 0.0 mg/dL (0.0-0.4) 11/14/19 04:35 Neonat Total Bilirubin Not Reportable 11/14/19 04:35 Neonat Direct Bilirubin Not Reportable 11/14/19 04:35 Neonat Indirect Bili Not Reportable 11/14/19 04:35 AST 18 U/L (14-36) 11/14/19 04:35 ALT 15 U/L (<35) 11/14/19 04:35 Alkaline Phosphatase 82 U/L (38-126) 11/14/19 04:35 Creatine Kinase 44 U/L (30-135) 11/13/19 12:43 Creatine Kinase Cancelled 11/13/19 12:43 CK-MB (CK-2) 0.23 ng/mL (<4.55) 11/14/19 14:25 Troponin I < 0.012 ng/mL 11/14/19 14:25 Total Protein 6.4 g/dL (6.3-8.2) 11/14/19 04:35 Albumin 3.9 g/dL (3.5-5.0) 11/14/19 04:35 Urine Color STRAW 11/13/19 13:20 Urine Appearance CLEAR 11/13/19 13:20 Urine pH 6.0 (5.0-9.0) 11/13/19 13:20 Ur Specific [place] 1.018 11/13/19 13:20 Urine Protein NEGATIVE mg/dL (NEGATIVE) 11/13/19 13:20 Urine Glucose (UA) NEGATIVE mg/dL (NEGATIVE) 11/13/19 13:20 Urine Ketones NEGATIVE mg/dL (NEGATIVE) 11/13/19 13:20 Urine Blood SMALL (NEGATIVE) H 11/13/19 13:20 Urine Nitrite NEGATIVE (NEGATIVE) 11/13/19 13:20 Urine Bilirubin NEGATIVE (NEGATIVE) 11/13/19 13:20 Urine Urobilinogen NEGATIVE mg/dL (<2.0) 11/13/19 13:20 Ur Leukocyte Esterase NEGATIVE (NEGATIVE) 11/13/19 13:20 Urine WBC (Auto) 1 /HPF 11/13/19 13:20 Urine RBC (Auto) 2 /HPF 11/13/19 13:20 Squamous Epi Cells Auto 1 /HPF 11/13/19 13:20 Urine Mucus (Auto) RARE /LPF 11/13/19 13:20 Urine Ascorbic Acid NEGATIVE (NEGATIVE) 11/13/19 13:20 11/13/19 11/13/19 11/14/19 12:43 18:22 14:25 CK-MB (CK-2) 0.67 0.23 Troponin I 0.091 0.068 < 0.012 Impressions: Chest/Abdomen CTA 11/13/19 13:32 IMPRESSION: No central or segmental pulmonary emboli. Evaluation of the subsegmental branches of the pulmonary arteries is limited due to artifact from respiratory motion Head CT 11/13/19 13:32 IMPRESSION: No acute intracranial abnormality. EVIDENCE OF ACUTE STROKE: NO. Carotid Doppler Study 11/14/19 00:00 IMPRESSION: NO HEMODYNAMICALLY SIGNIFICANT STENOSIS. Stroke Is this a Stroke Patient?: No Acute Heart Failure - Is this a Heart Failure Patient?: No
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
[2019-11-15 15:59] VITALS: BP 120/63
== END 2019-11-15 14:20 | disposition home or self-care (01) ==
LOC: ER 12:12 → EH 15:46 → 4S 17:30
PROVIDERS: ADMIT Internal Medicine; ATTEND Internal Medicine
DX: R55 Syncope and collapse (principal); I10 Essential (primary) hypertension; I87.1 Compression of vein; R79.89 Other specified abnormal findings of blood chemistry; R53.83 Other fatigue; R53.1 Weakness; N92.6 Irregular menstruation, unspecified; M79.7 Fibromyalgia; Z95.828 Presence of other vascular implants and grafts; Z82.49 Family history of ischemic heart disease and other diseases of the circulatory system; Z79.899 Other long term (current) drug therapy; Z87.81 Personal history of (healed) traumatic fracture; Z86.69 Personal history of other diseases of the nervous system and sense organs
CPT/HCPCS: 95819 ×2; 93005 ×2; 99285; 96360; 36415 ×2; 82553 ×2; 82550; 83735; 84100; 85025 ×2; 80053 ×2; 81001; 84484 ×2; 93306; 93880; 70450; 71275; 93010 ×2; G0378 ×4; J1650 ×2; J7030; J3490 ×2

== ENCOUNTER → 2020-01-09 | Outpatient (CLI) | payer OTHER ==
--- NOTE | 2020-01-09 19:05 | NEURO WORKBENCH EEG REPORT ---
EEG Report Patient: Nhung Easton ID: [id number] Referring Doctor: Clinton Bunch DOS: 01/09/2020 Medications: cyclobenzaprine, losartan, hydrochlorothiazide, melatonin, Zyrtec, Plavix, KCl, multivitamin, probiotic, omega-3, Mg, black cohosh History This is a 54 year old right handed woman with a history of hypertension, fibromyalgia, seizures, syncope, heart palpitations, vascular insufficiency, osteoarthritis, tinnitus, fibroids, carpal tunnel syndrome. This EEG was requested for seizures. EEG Interpretation This EEG was recorded in the awake, drowsy, and brief sleep states. The awake EEG is characterized by a well-organized background without a well-developed posterior dominant rhythm. The remainder of the background consisted of mainly alpha with low amplitude beta. There was mu present. Drowsiness was characterized by slowing of the background rhythms. There was prominent intermittent bilateral independent sharply contoured theta activity, typically in short runs, sometimes singular, in the temporal regions consistent with RMTD (rhythmic mid-temporal theta of drowsiness/psychomotor variant). Vertex waves were seen in the midline head regions. Sleep spindles were minimally seen in the midline head regions. There were frequent high amplitude arousals from sleep. Photic stimulation resulted in a good driving response. There were no epileptiform abnormalities. The EKG showed a regular rhythm. EEG Classification Normal EEG Impression This EEG is within normal limits for age. 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 Compared to the prior EEG dated 11/15/2019 which was normal in wakefulness and drowsiness, this is similar. INTERPRETING NEUROLOGIST: Carissa Marcano MD, [facility] Board Certified in Neurology, with special qualification in Child Neurology, and in Clinical Neurophysiology [facility]
== END ==
LOC: NEURO 12:40
PROVIDERS: ATTEND Family Medicine
DX: R56.9 Unspecified convulsions (principal)
CPT/HCPCS: 95819

== ENCOUNTER → 2020-04-18 | Outpatient (CLI) | payer OTHER ==
--- NOTE | 2020-04-18 17:29 | RADIOLOGY REPORT (SQ) ---
EXAM DESCRIPTION: KNEE LEFT 3 VIEWS IMAGES COMPLETED DATE/TIME: 04/18/2020 4:59 pm REASON FOR STUDY: PAIN AND SWELLING OF LEFT KNEE M25.562 PAIN IN LEFT KNEE COMPARISON: None. NUMBER OF VIEWS: Three views. TECHNIQUE: AP, lateral, and sunrise patella radiographic images acquired of the left knee. LIMITATIONS: None. FINDINGS: MINERALIZATION: Normal. BONES: No acute fracture or dislocation. No worrisome bone lesions. JOINT: No effusion. SOFT TISSUES: No soft tissue swelling. No radio-opaque foreign body. OTHER: No other significant finding. IMPRESSION: NEGATIVE STUDY OF THE LEFT KNEE. NO RADIOGRAPHIC EVIDENCE OF ACUTE INJURY. TECHNICAL DOCUMENTATION: JOB ID: [id number] 2010 [employer]- All Rights Reserved Reading location - IP/workstation name: [email or web address]
== END ==
LOC: RAD 16:33
PROVIDERS: ATTEND Nurse Practitioner Family
DX: M25.562 Pain in left knee (principal)

== ENCOUNTER → 2020-04-30 | Outpatient (CLI) | payer OTHER ==
--- NOTE | 2020-04-30 16:21 | RADIOLOGY REPORT (SQ) ---
EXAM DESCRIPTION: VENOUS UNILATERAL LOWER IMAGES COMPLETED DATE/TIME: 04/30/2020 3:59 pm REASON FOR STUDY: LLE VARICOSE VEINS, SWELLING I86.8 VARICOSE VEINS OF OTHER SPECIFIED SITES COMPARISON: None. TECHNIQUE: Dynamic and static blas scale and color images acquired of the left leg venous system. Se lected spectral images acquired with additional compression and augmentation maneuvers. The contralat eral common femoral vein and saphenofemoral junction were also imaged. Images stored on PACS. LIMITATIONS: None. FINDINGS: COMMON FEMORAL: Normal phasicity, compression and augmentation. No visualized echogenic ma terial on blas scale. No defects on color images. FEMORAL: Normal compression and augmentation. No visualized echogenic material on blas scale. No defe cts on color images. POPLITEAL: Normal compression, augmentation. No visualized echogenic material on blas scale. No defec ts on color images. CALF VESSELS: Normal compression, augmentation. No visualized echogenic material on blas scale. No de fects on color images. GSV and SSV: Normal compression, augmentation. No visualized echogenic material on blas scale. No def ects on color images. ANY DEEP VENOUS INSUFFICIENCY: Not evaluated. ANY EVIDENCE OF POPLITEAL CYST: No. OTHER: No other significant finding. CONTRALATERAL COMMON FEMORAL VEIN AND SAPHENOFEMORAL JUNCTION: Normal phasicity, compression and augmentation. No visualized echogenic material on blas scale. No de fects on color images. IMPRESSION: NO EVIDENCE DVT OR SVT IN THE LEFT LEG. TECHNICAL DOCUMENTATION: JOB ID: [id number] 2010 [employer]- All Rights Reserved Reading location - IP/workstation name: [email or web address]
== END ==
LOC: SP 13:41
PROVIDERS: ATTEND Surgery Vascular Surgery
DX: I86.8 Varicose veins of other specified sites (principal)
CPT/HCPCS: 93971